=== PATIENT | male | born 1950 | race Caucasian/White ===

== ENCOUNTER 2020-10-11 11:14 | Emergency (ER) | payer MEDICARE, BC ==
[~2020-10-11] VITALS: Ht 193 cm; Wt 118.2 kg
[~2020-10-11 11:14] MED LIST: ALLOPURINOL300 MG PO; ASPIR-LOW81 MG PO; BACTRIM 400 MG-1 TAB PO; CELEBREX; COUMADIN 6MG6 MG/TAB PO; COUMADIN1 MG PO; FLEXERIL 1010 MG/TAB PO; LEVOXYL0.125 MG PO; LOVENOX120 MG/0.8 SC; MULTAQ400 MG PO; PROVENTIL0.09 MG/A1 IH; ZITHROMAX TRI-500 MG PO
[2020-10-11 11:20] VITALS: TEMP 97.7
[2020-10-11 11:52] LABS: BASO % 0.8 % (0.0-2.0); EOS # 0.2 (0.0-0.7); EOS % 4.4 % (0-4.0); GRAN # 2.4 (1.4-6.5); GRAN % 50.6 % (42.2-75.2); HEMATOCRIT 46.6 % (42.0-52.0); HEMOGLOBIN 15.5 g/dl (13.5-18.0); LYMPH # 1.8 (1.2-3.4); LYMPH % 36.5 % (20.0-51.0); MEAN CELL VOLUME 102 fl (80.0-100.0); MEAN CORPUSCULAR HEMOGLOBIN 34 pg (27.0-31.0); MEAN CORPUSCULAR HGB CONC 33 g/dl (33.0-37.0); MEAN PLATELET VOLUME 10.4 fl (7.4-10.4); MONO # 0.4 (0.1-0.6); MONO % 7.5 % (1.7-9.3); PLATELET COUNT 117 K/mm3 (130-400); RED BLOOD COUNT 4.59 M/mm3 (4.20-5.60); REDCELL DISTRIBUTION WIDTH-CV 13.8 % (11.5-14.5)
[2020-10-11 11:59] LABS: ALANINE AMINOTRANSFERASE 32 U/L (4-49); ALBUMIN 3.8 gm/dL (3.5-5.0); ALKALINE PHOSPHATASE 104 U/L (50-136); ANION GAP 1 mmol/L (7-16); AST,SGOT 42 U/L (15-37); BILIRUBIN,TOTAL 0.7 mg/dL (0.0-1.0); BLOOD UREA NITROGEN 18 mg/dL (9-20); CARBON DIOXIDE 28 mmol/L (22-30); CHLORIDE 103 mmol/L (98-107); CREATININE, serum 0.91 (0.66-1.25); GLUCOSE 213 mg/dL (74-106); POTASSIUM 3.9 mmol/L (3.4-5.0); SODIUM 132 mmol/L (137-145)
[2020-10-11 12:18] LABS: TROPONIN-I < 0.012 ng/mL (0.000-0.035)
[2020-10-11 12:30] LABS: TSH w REFLEX 0.554 uIU/mL (0.465-4.680)
[2020-10-11] MEDS ORDERED: LASIX 40MG TABL40 MG PO (14:08)
[2020-10-11] MEDS ORDERED: K-DUR20 MEQ PO (14:08)
[2020-10-11 14:13] LABS: INR 1.8 (0.8-3.0); PROTHROMBIN TIME 20.1 SECONDS (9.7-12.8)
[2020-10-11 14:28] VITALS: BP 134/86; PULSE 80
== END 2020-10-11 14:28 | disposition home or self-care (01) ==
LOC: COL.ER 11:14
PROVIDERS: Emergency Medicine
DX: R60.0 Localized edema (principal); R00.0 Tachycardia, unspecified; R07.89 Other chest pain; R06.02 Shortness of breath; E03.9 Hypothyroidism, unspecified; Z79.01 Long term (current) use of anticoagulants; Z79.890 Hormone replacement therapy

== ENCOUNTER 2020-10-17 07:05 | Day surgery (SDC) | payer MEDICARE, BC ==
[~2020-10-17] VITALS: Ht 193 cm; Wt 123.1 kg
[~2020-10-17 07:05] MED LIST changes: +K-DUR20 MEQ PO; +LASIX 40MG TABL40 MG PO
[2020-10-17] MEDS ORDERED: TOPROL XL 25MG25 MG PO (07:31)
[2020-10-17 08:20] LABS: INR 1.7 (0.8-3.0); PROTHROMBIN TIME 19.4 SECONDS (9.7-12.8)
[2020-10-17 08:24] LABS: POTASSIUM 4.3 mmol/L (3.4-5.0)
[2020-10-17 10:00] VITALS: BP 124/87; PULSE 52
[2020-10-17 10:15] VITALS: BP 106/79; PULSE 82
[2020-10-17 10:25] LABS: THYROID STIMULATING HORMONE 1.58 uIU/mL (0.465-4.680)
[2020-10-17 10:30] VITALS: BP 112/73; PULSE 58
[2020-10-17 10:45] VITALS: BP 117/74; PULSE 55
--- NOTE | 2020-10-17 10:50 | NUR ---
DC instructions reviewed with pt and significant other, both express understanding. Pt is steady on feet in room. Has tolerated PO fluids without issue, denies desire for food at this time. C/o slight "scratching" to throat which is steadily improving since procedure but not yet completely resolved. IV DC'd with catheter intact and bleeding controlled at site. He is assited out to car by wheelchair.
== END 2020-10-17 10:50 | disposition home or self-care (01) ==
LOC: COL.CAR 07:05
PROVIDERS: Internal Medicine Cardiovascular Disease
DX: I48.92 Unspecified atrial flutter (principal); I48.91 Unspecified atrial fibrillation; I26.99 Other pulmonary embolism without acute cor pulmonale; E03.9 Hypothyroidism, unspecified; I82.409 Acute embolism and thrombosis of unspecified deep veins of unspecified lower extremity; I87.2 Venous insufficiency (chronic) (peripheral); I20.9 Angina pectoris, unspecified; Z79.01 Long term (current) use of anticoagulants; Z79.899 Other long term (current) drug therapy; Z79.890 Hormone replacement therapy; Z85.47 Personal history of malignant neoplasm of testis
CPT/HCPCS: J2704; J7030

== ENCOUNTER 2021-03-23 08:25 | Day surgery (SDC) | payer MEDICARE, BC ==
[~2021-03-23] VITALS: Ht 193 cm; Wt 124.6 kg
[~2021-03-23 08:25] MED LIST changes: +TOPROL XL 25MG25 MG PO
[2021-03-23 08:43] VITALS: BP 138/84; PULSE 54; TEMP 97
[2021-03-23 09:33] LABS: INR 1.7 (0.8-3.0)
[2021-03-23 10:35] VITALS: BP 100/54; PULSE 51; TEMP 97.2
[2021-03-23 10:50] VITALS: BP 134/79; PULSE 49
[2021-03-23 11:05] VITALS: BP 132/77; PULSE 51
--- NOTE | 2021-03-23 11:20 | NUR ---
1035- Pt returns from endo procedure via cart and RN assist to [facility]. Pt ambulates from cart to recliner with RN assist. Monitors on and alarms set. Call light within reach. Pt alert and oriented. Pt requests orange juice and toast. Pt denies any pain or nausea. Provider in to see pt. 1050- Pt taking food and drink well. No complications noted. 1105- Discharge instructions given to pt. All questions answered to pt and 's satisfaction. Handed to pt education material and discharge information. 1120- Pt transferred out of the hospital via wheelchair and RN assist, to private vehicle driven by .
== END 2021-03-23 11:21 | disposition home or self-care (01) ==
LOC: SDCO 08:25
PROVIDERS: Family Medicine
DX: Z12.11 Encounter for screening for malignant neoplasm of colon (principal); D12.5 Benign neoplasm of sigmoid colon; K57.30 Diverticulosis of large intestine without perforation or abscess without bleeding; K21.9 Gastro-esophageal reflux disease without esophagitis; E78.5 Hyperlipidemia, unspecified; E03.9 Hypothyroidism, unspecified; G47.33 Obstructive sleep apnea (adult) (pediatric); M10.9 Gout, unspecified; I48.92 Unspecified atrial flutter; Z79.890 Hormone replacement therapy; Z79.01 Long term (current) use of anticoagulants; Z79.899 Other long term (current) drug therapy; Z85.47 Personal history of malignant neoplasm of testis; Z80.0 Family history of malignant neoplasm of digestive organs
CPT/HCPCS: J7120

== ENCOUNTER 2023-03-06 15:42 | Inpatient (IN) | payer MEDICARE, BC ==
[~2023-03-06] VITALS: Ht 193 cm; Wt 123.0 kg
[~2023-03-06 15:42] MED LIST changes: +COUMADIN 2MG2 MG/TAB PO
[2023-03-06 16:32] LABS: BASO # 0.1 K/mm3 (0.0-0.2); BASO % 0.8 % (0.0-2.0); EOS # 0.2 K/mm3 (0.0-0.7); EOS % 3.6 % (0.0-4.0); GRAN # 2.8 K/mm3 (1.4-6.5); GRAN % 46.2 % (42.2-75.2); HEMATOCRIT 49.9 % (42.0-52.0); HEMOGLOBIN 17.1 g/dl (13.5-18.0); LYMPH # 2.3 K/mm3 (1.2-3.4); LYMPH % 38.8 % (20.0-51.0); MEAN CELL VOLUME 99 fl (80.0-100.0); MEAN CORPUSCULAR HEMOGLOBIN 34 pg (27-31); MEAN CORPUSCULAR HGB CONC 34 g/dl (33.0-37.0); MEAN PLATELET VOLUME 10.7 fl (7.4-10.4); MONO # 0.6 K/mm3 (0.1-0.6); MONO % 10.4 % (1.7-9.3); PLATELET COUNT 130 K/mm3 (130-400); RED BLOOD COUNT 5.02 M/mm3 (4.20-5.60); REDCELL DISTRIBUTION WIDTH-CV 13.5 % (11.5-14.5)
[2023-03-06 17:03] LABS: INR 3.2 (0.8-3.0); PROTHROMBIN TIME 34.1 SECONDS (9.7-12.8)
[2023-03-06 17:06] LABS: ALANINE AMINOTRANSFERASE 35 U/L (0-55); ALBUMIN 3.4 gm/dL (3.4-4.8); ALKALINE PHOSPHATASE 100 U/L (40-150); ANION GAP 6 mmol/L (7-16); AST,SGOT 36 U/L (5-34); BILIRUBIN,TOTAL 0.8 mg/dL (0.2-1.2); BLOOD UREA NITROGEN 13 mg/dL (8-26); CARBON DIOXIDE 26 mmol/L (23-31); CHLORIDE 107 mmol/L (98-107); CREATININE, serum 1.06 mg/dL (0.72-1.25); GLUCOSE 90 mg/dL (70-99); POTASSIUM 4.6 mmol/L (3.5-4.5); SODIUM 139 mmol/L (136-145); TOTAL PROTEIN 6.4 gm/dL (6.2-8.1)
[2023-03-06 17:12] LABS: TROPONIN-I < 0.010 ng/mL (0.00-0.033)
[2023-03-06 19:13] LABS: MAGNESIUM 1.9 mg/dL (1.6-2.6)
[2023-03-06 19:34] LABS: TSH w REFLEX 1.695 uIU/mL (0.350-4.940)
[2023-03-06 20:07] VITALS: BP 121/85; PULSE 105; TEMP 97.6
[2023-03-06 20:16] VITALS: BP_SYST 121
[2023-03-06 20:18] VITALS: BP_SYST 121
--- NOTE | 2023-03-06 21:37 | NUR ---
Patient arrived to medical unit at 1945 from ER. Denies having pain and discomfort. Peripheral INT to right AC. Denies SOB and dyspnea. Denies chest pain and SOB. On room air. Aflutter on telemetry, rate controlled, but does get tachycardic when moving. Takes Metoprolol at night, called Lexi, and order received to change order to take tonight per home schedule. Aware of plan for ELLI/CV tomorrow, and that he is NPO after midnight. Voices no questions, needs, or concerns at this time. In bed with call light within reach.
[2023-03-06 23:28] VITALS: BP 117/74; PULSE 70; TEMP 98
[2023-03-07] VITALS (15 sets, daily range): BP systolic 101–125; BP diastolic 52–83; PULSE 50–86; TEMP 97.4–98.5
[2023-03-07 05:40] LABS: BASO % 0.9 % (0.0-2.0); EOS # 0.3 K/mm3 (0.0-0.7); EOS % 5.5 % (0.0-4.0); GRAN % 42.9 % (42.2-75.2); HEMOGLOBIN 16.3 g/dl (13.5-18.0); LYMPH # 1.9 K/mm3 (1.2-3.4); LYMPH % 41.5 % (20.0-51.0); MEAN CELL VOLUME 98 fl (80.0-100.0); MEAN CORPUSCULAR HEMOGLOBIN 35 pg (27-31); MEAN CORPUSCULAR HGB CONC 35 g/dl (33.0-37.0); MEAN PLATELET VOLUME 10.8 fl (7.4-10.4); MONO # 0.4 K/mm3 (0.1-0.6); PLATELET COUNT 99 K/mm3 (130-400); RED BLOOD COUNT 4.72 M/mm3 (4.20-5.60); REDCELL DISTRIBUTION WIDTH-CV 13.2 % (11.5-14.5)
--- NOTE | 2023-03-07 05:40 | NUR ---
Patient has had no complaints of pain or discomfort this shift, except that he did not get much sleep due to staff checking VS, labs, etc. Continues to be in Aflutter on telemetry, rate controlled. Voices no questions, needs, or concerns at this time. In bed with call light within reach. Has been NPO since midnight for ELLI/CV today.
[2023-03-07 05:46] LABS: INR 3.2 (0.8-3.0); PROTHROMBIN TIME 33.9 SECONDS (9.7-12.8)
[2023-03-07 05:55] LABS: CALCIUM 8.4 mg/dL (8.4-10.2); CREATININE, serum 0.87 mg/dL (0.72-1.25); POTASSIUM 4.2 mmol/L (3.5-4.5)
--- NOTE | 2023-03-07 07:00 | NUR ---
Pt resting in bed. Pt is on RA. Pt is controlled aflutter on tele. Pt has been NPO since midnight for possible sanjuanita/cardioversion. Pt is AxOx4. Pt has call light and instructed to call with all needs. 0745-Spoke with [facility], no procedure scheduled for Pt at this time. Awaiting Cardiology. Pt updated.
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
--- NOTE | 2023-03-07 16:35 | NUR ---
Home Theater Experience Expert met with Patient at bedside to conduct Care Managment assessment and discuss discharge planning. Patient lives in [place], [place] with his and is established wiht PCP Jennifer Fernandez. Patient is covered by [facility] and [facility] and requests discharge medications be sent to [facility]. Patient denies the use of DMe and endorses independency with ADL/IADls prior to admission stating that he has no concerns when being discharged home from this admission. Patient states that his DPOAHC is his brother Dillon. Patient is anticipated to discharge home on 03-09-23. Discharge Plan: Home
--- NOTE | 2023-03-07 21:49 | NUR ---
Patient assessed around 2100. Alert and oriented, and able to make needs known. Denies having pain and discomfort. Went over Sotalol, and denies having any questions or concerns at this time regarding medication. In bed with call light within reach. Remains sinus yolanda on telemetry.
[2023-03-08] VITALS (11 sets, daily range): BP systolic 101–137; BP diastolic 54–72; PULSE 47–50; TEMP 97.3–98.5
[2023-03-08 06:02] LABS: BASO # 0.1 K/mm3 (0.0-0.2); BASO % 1.1 % (0.0-2.0); EOS # 0.3 K/mm3 (0.0-0.7); GRAN # 2.3 K/mm3 (1.4-6.5); GRAN % 48.2 % (42.2-75.2); HEMOGLOBIN 15.5 g/dl (13.5-18.0); LYMPH # 1.7 K/mm3 (1.2-3.4); LYMPH % 36.1 % (20.0-51.0); MEAN CELL VOLUME 98 fl (80.0-100.0); MEAN CORPUSCULAR HEMOGLOBIN 34 pg (27-31); MEAN CORPUSCULAR HGB CONC 34 g/dl (33.0-37.0); MEAN PLATELET VOLUME 10.7 fl (7.4-10.4); MONO # 0.4 K/mm3 (0.1-0.6); MONO % 8.2 % (1.7-9.3); PLATELET COUNT 103 K/mm3 (130-400); REDCELL DISTRIBUTION WIDTH-CV 13.3 % (11.5-14.5)
--- NOTE | 2023-03-08 06:09 | NUR ---
Patient has remained sinus yolanda on telemetry 40s-50s this shift. QTC this morning 455. Voices no questions, needs, or concerns at this time. In bed with call light within reach.
[2023-03-08 06:11] LABS: INR 3.1 (0.8-3.0)
[2023-03-08 06:13] LABS: ALBUMIN 2.9 gm/dL (3.4-4.8); CALCIUM 8.5 mg/dL (8.4-10.2); CREATININE, serum 1.05 mg/dL (0.72-1.25); MAGNESIUM 1.7 mg/dL (1.6-2.6); PHOSPHOROUS 2.7 mg/dL (2.3-4.7); POTASSIUM 4.2 mmol/L (3.5-4.5)
--- NOTE | 2023-03-08 07:40 | NUR ---
PATIENT ALERT AND ORIENTED X4. REPORTS NO PAIN. PATIENT IN BED WORKING ON HIS COMPUTER. PATIENT IN A GOOD MOOD. NO CONCERNS REPORTED WHEN ASKED. CALL LIGHT WITHIN REACH.
[2023-03-08] MEDS ORDERED: BETAPACE 120MG120 MG PO (10:39)
--- NOTE | 2023-03-09 01:06 | NUR ---
Shift assessment completed. Pt has just received his fourth dose of sotatol from day shift nurse. EKG at 1999 to recheck QTc. Pt is alert and oriented. He denies pain or discomfort at this time. He is anxious to discharge tonight. He is accompanied by his in the room. Call light within reach.
--- NOTE | 2023-03-09 01:23 | NUR ---
EKG reviewed but FABIOLA Elliott and discharge orders were put in. Discharge education was reviewed with pt and his . They requested to take home a morning dose of sotalol since the pharmacy will be closed upon discharge. This was approved by FABIOLA Elliott. This was prepared by samuel sheikh in the pharmacy and was given to the pt with instructions. IV was removed. Telemetry was discontinued. Discharge paper work was completed and signed by pt and this nurse. He was accompanied out to the hospital entrance with staff.
== END 2023-03-08 21:55 | disposition home or self-care (01) | DRG 309 ==
LOC: COL.ER 15:42 → MEDICAL 18:39
PROVIDERS: Emergency Medicine; Internal Medicine; Nurse Practitioner Family; ADMIT Hospitalist
PROC: 5A2204Z Restoration of Cardiac Rhythm, Single (ICD-10-PCS; principal; 2023-03-07)
DX: I48.92 Unspecified atrial flutter (principal); D68.51 Activated protein C resistance; I34.0 Nonrheumatic mitral (valve) insufficiency; H26.9 Unspecified cataract; E03.9 Hypothyroidism, unspecified; I47.20 Ventricular tachycardia, unspecified; I42.9 Cardiomyopathy, unspecified; Z79.01 Long term (current) use of anticoagulants; Z90.79 Acquired absence of other genital organ(s); Z86.711 Personal history of pulmonary embolism; Z85.47 Personal history of malignant neoplasm of testis; Z86.718 Personal history of other venous thrombosis and embolism; Z79.890 Hormone replacement therapy; Z86.16 Personal history of COVID-19; Z23 Encounter for immunization
CPT/HCPCS: J2704